=== PATIENT | female | born 1980 | race Two or more races ===

== ENCOUNTER 2024-11-19 06:13 | Observation (INO) | payer MEDICAID, SELFPAY ==
[2024-11-19] VITALS (13 sets, daily range): BP systolic 115–152; BP diastolic 62–102; PULSE 65–90; RESP 13–21; TEMP 36.4–37.1; O2SAT 94–99
--- NOTE | 2024-11-19 06:44 | XR_ITS ---
Examination: Abdomen sonogram, Limited Date and time of exam: November 19, 2024 0730 hrs. Indications: Bilateral abdominal pain beginning today. Technique: Real-time quiroz scale transabdominal sonographic images of the upper abdomen obtained. Findings: Gallbladder wall measures up to 0.43 cm with multiple areas of edema around the gallbladder wall 2 cm gallstone Common bile duct is enlarged 0.6 cm although no definite common bile duct stones. Pancreatic head 1.7 cm Liver 14.5 cm fatty infiltration Hypoechoic areas near the gallbladder which may again represent edema multiple images Normal hepatopedal portal venous flow Patent IVC Impression: Findings most consistent with acute calculus cholecystitis with enlarged common bile duct Consider MRCP follow-up to confirm cholecystitis and to exclude stricture or stones in the common bile duct
--- NOTE | 2024-11-19 06:45 | PD.EDABDPN ---
ED Abdominal Pain RME/HPI General Chief Complaint: Abdominal Pain Stated complaint: UPPER ABDOMINAL PAIN Time seen by provider: 11/19/24 06:32 Arrival date/time: 11/19/24 06:13 44-year-old female with no known medical history presents to the emergency room with a chief complaint of 8 out of 10 epigastric pain that radiates to the right upper quadrant x 1 day Source: patient Mode of arrival: ambulatory Limitations: no limitations Related Data Allergies Allergy/AdvReac Type Severity Reaction Status Date / Time No Known Allergies Allergy Verified 11/19/24 06:17 Review of Systems Review of Systems Systems Reviewed: All systems reviewed, normal except as documented Constitutional Constitutional: Reports system reviewed and no additional complaints, except as documented, Denies fatigue, Denies fever(s), Denies headache(s) and Denies weakness Eyes Eyes: Reports system reviewed and no additional complaints, except as documented, Denies blurry vision and Denies change in vision ENT Ears, Nose, Mouth, and Throat: Reports system reviewed and no additional complaints, except as documented, Denies otalgia, Denies headache(s), Denies nasal congestion, Denies throat swelling and Denies vertigo Cardiovascular Cardiovascular: Reports system reviewed and no additional complaints, except as documented, Denies chest pain, Denies dyspnea and Denies dyspnea on exertion Respiratory Respiratory: Reports system reviewed and no additional complaints, except as documented, Denies chest congestion, Denies cough, Denies dyspnea, Denies dyspnea on exertion and Denies wheezing Gastrointestinal Gastrointestinal: Reports system reviewed and no additional complaints, except as documented, Reports abdominal pain, Reports cramping, Reports nausea and Denies vomiting Genitourinary Genitourinary: Reports system reviewed and no additional complaints, except as documented Musculoskeletal Musculoskeletal: Reports system reviewed and no additional complaints, except as documented and Denies back pain Integumentary/Breasts Skin/Breast: Reports system reviewed and no additional complaints, except as documented and Denies wounds Neurologic Neurologic: Reports system reviewed and no additional complaints, except as documented, Denies confusion, Denies headache(s), Denies lack of coordination, Denies vertigo and Denies weakness Psychiatric Psychiatric: Reports system reviewed and no additional complaints, except as documented, Denies anxiety, Denies confusion, Denies depression, Denies paranoia, Denies suicidal ideation and Denies tactile hallucinations Endocrine Endocrine: Reports system reviewed and no additional complaints, except as documented and Denies fatigue Hematologic/Lymphatic Hematologic/Lymphatic: Reports system reviewed and no additional complaints, except as documented and Denies lymphadenopathy Allergic/Immunologic Allergic/Immunologic: Reports system reviewed and no additional complaints, except as documented, Denies throat swelling, Denies urticaria and Denies wheezing ED Exam General Limitations: Present no limitations General appearance: Present alert and in no apparent distress Head Head exam: Present atraumatic Eye Eye exam: Present normal appearance, PERRL and EOMI ENT ENT exam: Present normal exam, normal oropharynx and mucous membranes moist Neck Neck exam: Present normal inspection, full ROM and trachea midline Chest Chest inspection: Present normal inspection and symmetric chest wall rise Respiratory Respiratory exam: Present normal lung sounds bilaterally Cardiovascular Cardiovascular exam: Present regular rate, normal rhythm and normal heart sounds Abdominal Exam Abdominal exam: Present soft, tenderness, normal bowel sounds and Kelly's sign Abdominal tenderness: Present RUQ and moderate Extremities Exam Extremities exam: Present normal inspection and full ROM Back Exam Back exam: Present normal inspection and full ROM Neurological Exam Neurological exam: Present alert, oriented X3 and CN II-XII intact Psychiatric Psychiatric exam: Present normal affect and normal mood Skin Skin exam: Present warm, dry, intact and normal color Course Quality Measures none Orders Category Date Time Status Place in Surgical Day Care Routine Admission 11/19/24 08:35 Active Activity as Tolerated Routine Care 11/19/24 08:35 Ordered COVID-19 Screening Questionnaire NOW Care 11/19/24 08:32 Active Decision to Admit X1 Care 11/19/24 08:32 Completed Consult to General Surgery Stat Cons 11/19/24 08:32 Ordered US gall bladder Stat Exams 11/19/24 06:44 Completed CBC Stat Lab 11/19/24 06:51 Completed CMP [Comprehensive Metabolic Panel] Stat Lab 11/19/24 06:51 Completed HCG Qualitative,Urine Stat Lab 11/19/24 06:50 Completed Lipase Stat Lab 11/19/24 06:51 Completed UA [Urinalysis] Stat Lab 11/19/24 06:50 Completed Urine Culture Stat Lab 11/19/24 06:50 Received Acetaminophen Tab [Tylenol Tab] Med 11/19/24 08:35 Active 650 mg PO Q6H PRN HYDROcodone*/APAP 5/325 [[place] 5/325] Med 11/19/24 06:44 Discontinued 1 tab PO X1 ONE Ketorolac Inj [Toradol Inj] Med 11/19/24 08:35 Active 15 mg IVP Q6H PRN Morphine Inj Med 11/19/24 08:35 Active 4 mg IVP Q4H PRN Ondansetron Inj [Zofran Inj] Med 11/19/24 08:35 Active 8 mg IV Q4HR PRN Ondansetron Odt [Zofran Odt] Med 11/19/24 06:44 Discontinued 4 mg PO X1 ONE Piper/Tazo 3.375 gm Premix [Zosyn] Med 11/19/24 08:36 Active 3.375 gm in 50 ml IV X1 Sodium Chloride 0.9% 1000 ml [Ns] 1,000 ml Med 11/19/24 08:45 Active IV 125 mls/hr mg Hyd/Al Hyd/Jessica Susp [Maalox Susp] Med 11/19/24 06:44 Discontinued 30 ml PO X1 ONE Vital Signs Vital signs: Vital Signs Temperature 98 F 11/19/24 06:16 Pulse Rate 87 11/19/24 06:16 Respiratory Rate 18 11/19/24 06:16 Blood Pressure 129/85 H 11/19/24 06:16 Pulse Oximetry (%) 98 11/19/24 06:16 Oxygen Delivery Method Room Air 11/19/24 06:16 Abdominal Pain MDM MDM Narrative [facility] Narrative:: 44-year-old female with no known medical history presents to the emergency room with a chief complaint of 8 out of 10 epigastric pain that radiates to the right upper quadrant x 1 day Patient is hemodynamically stable and in no apparent distress. Patient is afebrile not tachycardic not tachypneic Physical examination shows 8 out of 10 pain with palpation to the epigastric area that radiates to the right upper quadrant. The patient has a positive Kelly sign. Ultrasound of the gallbladder was completed and shows the findings are most consistent with acute calculus cholecystitis with an enlarged common bile duct. Our general surgeon on-call Dr. Demarco was consulted and she will admit the patient Patient data External records reviewed:: [facility] previous records Clinical information provided by:: patient Social determinants that could affect healthcare access:: none Patient has the following chronic illnesses:: No chronic illness How is presenting disease/condition affected by chronic disease/condition?: no chronic disease Evaluation data The following diagnostics were reviewed and interpreted by me:: lab results and radiology exam(s) Lab and/or radiology exams considered but not ordered:: Labs and radiology exams considered and ordered Interpretation Summary: Gallbladder ultrasound-Findings: Gallbladder wall measures up to 0.43 cm with multiple areas of edema around the gallbladder wall 2 cm gallstone Common bile duct is enlarged 0.6 cm although no definite common bile duct stones. Pancreatic head 1.7 cm Liver 14.5 cm fatty infiltration Hypoechoic areas near the gallbladder which may again represent edema multiple images Normal hepatopedal portal venous flow Patent IVC Impression: Findings most consistent with acute calculus cholecystitis with enlarged common bile duct Consider MRCP follow-up to confirm cholecystitis and to exclude stricture or stones in the common bile duct Medications / Prescriptions Medications or Prescriptions considered but not ordered:: Medication given Medication administrations:: Medication Administration History Acetaminophen (Acetaminophen 325 Mg Tablet) 650 mg PO Q6H PRN PRN Reason: PAIN SCALE 1-3 (mild Stop: 12/19/24 08:34 Sodium Chloride (Ns) 1,000 mls @ 125 mls/hr IV .Q8H YULISSA Stop: 12/19/24 08:44 Ketorolac Tromethamine (Ketorolac Inj 30 Mg/Ml Vial) 15 mg IVP Q6H PRN PRN Reason: PAIN SCALE 4-6 (Moderate Stop: 11/24/24 08:34 Morphine Sulfate (Morphine Sulf Inj 10 Mg/Ml Vial) 4 mg IVP Q4H PRN PRN Reason: PAIN SCALE 7-10 (Severe Ondansetron HCl (Ondansetron Inj 2 Mg/Ml Inj 2 Ml) 8 mg IV Q4HR PRN; Protocol PRN Reason: NAUSEA OR VOMITING Stop: 12/19/24 08:34 Discontinued Medications Hydrocodone Bitart/Acetaminophen (Hydrocodone/Apap 5/325 Tablet) 1 tab PO X1 ONE Stop: 11/19/24 06:45 Last Admin: 11/19/24 07:18 Dose: 1 tab Documented By: KATIE Al Hydrox/Mg Hydrox/Simethicone (Mg Hyd/Al Hyd/Jessica (Maalox Reg) Susp 30 Ml Udc) 30 ml PO X1 ONE Stop: 11/19/24 06:45 Last Admin: 11/19/24 07:18 Dose: 30 ml Documented By: KATIE Piperacillin/Tazobactam/Dextrose (Zosyn) 3.375 gm in 50 mls @ 100 mls/hr IV X1 ONE Stop: 11/19/24 09:05 Ondansetron HCl (Ondansetron Odt 4 Mg Tabrap) 4 mg PO X1 ONE; Protocol Stop: 11/19/24 06:45 Last Admin: 11/19/24 07:17 Dose: 4 mg Documented By: KATIE Medication given Consultations Consultation(s) initiated? (list below): Yes Consultation #1 (Physician, Specialty, Details): Dr. Demarco general surgeon on-call Time: 08:30 Diagnosis Differential diagnosis abdominal pain: abdominal pain, constipation, gastroenteritis and other (Cholelithiasis/cholecystitis) Most likely diagnosis given after review of the tests above:: Acute calculus cholecystitis Admission Indicated Admission indicated?: indicated Admission Request Was there a request for admission?: Yes Admission Attestation Admission request attestation: Discussed case with [] from Hospitalist service regarding admission. Discussed patients ED course, exam findings, labs, and radiology results. The Hospitalist [agrees,declines] to accept the patient for admission. Disposition Plan Disposition Plan: Admit Discharge Plan Plan Patient Disposition: Admit Acute Care w/in Hospital Discharge Disposition comment: Stable Problem List Clinical Impression: Acute calculous cholecystitis
[2024-11-19 07:02] LABS: Collection Type, Urine Clean Catch
[2024-11-19 07:11] LABS: Basophils # (Auto) 0.1 Thou/mm3 (0.0-0.2); Basophils % (Auto) 1 % (0-2.5); Eosinophils # (Auto) 0.0 Thou/mm3 (0.0-0.5); Eosinophils % (Auto) 0 % (0-10); Hematocrit 39.7 % (36.0-46.0); Hemoglobin 14.0 g/dL (12.0-16.0); Immature Granulocytes Auto 0.04 Thou/mm3 (0.00-0.00); Lymphocytes # (Auto) 2.5 Thou/mm3 (1.0-4.8); Lymphocytes % (Auto) 24 % (10-50); Mean Corpuscular HGB Conc 35.3 g/dl (31.0-37.0); Mean Corpuscular Hemoglobin 31.0 pg (25.0-35.0); Mean Corpuscular Volume 88 fL (80-100); Monocytes # (Auto) 0.6 Thou/mm3 (0.0-0.8); Monocytes % (Auto) 6 % (0-12); Neutrophils # (Auto) 7.4 Thou/mm3 (1.8-7.7); Neutrophils % (Auto) 69 % (37-80); Nucleated Red Blood Cell # 0.00 Thou/mm3 (0.00-0.00); Nucleated Red Blood Cell % 0 /100 WBC (0); Platelet Count 328 Thou/mm3 (140-440); RDW Standard Deviation 40.3 fL (36.4-46.3); Red Blood Count 4.52 Miln/mm3 (4.00-5.20); White Blood Count 10.7 Thou/mm3 (3.6-11.0)
[2024-11-19] MEDS: ONDANSETRON ODT 4 MG TABRAP PO (07:17)
[2024-11-19] MEDS: MG HYD/AL HYD/SIME (Maalox Reg) SUSP 30 ML UDC PO (07:18)
[2024-11-19] MEDS: HYDROcodone/APAP 5/325 TABLET 1 TAB PO (07:18)
[2024-11-19 07:24] LABS: Alanine Aminotransferase 52 U/L (10-49); Albumin, Serum 4.2 gm/dL (3.5-5.0); Albumin/Globulin Ratio 1.4 (1.2-2.2); Alkaline Phosphatase 95 U/L (46-116); Anion Gap 10 (7-16); Aspartate Amino Transferase 33 U/L (0-34); BUN/Creatinine Ratio 17 Ratio (12-20); Bilirubin,Total 0.3 mg/dL (0.3-1.2); Blood Urea Nitrogen 10 mg/dL (9-23); Calcium 9.5 mg/dL (8.3-10.6); Calcium (Corrected) 9.5 mg/dL (8.5-10.1); Carbon Dioxide 22.0 mMol/L (20.0-31.0); Chloride 106 mMol/L (98-107); Creatinine (Component) 0.6 mg/dL (0.6-1.3); Globulin 2.9 gm/dL (2.3-3.5); Glucose 119 mg/dL (74-106); Lipase 30 U/L (12-53); Osmolality,Calculated 275 (275-295); Potassium 4.2 mMol/L (3.4-5.1); Sodium 138 mMol/L (136-145); Total Protein 7.1 gm/dL (5.7-8.2); eGFR > 60 See Note
[2024-11-19 07:34] LABS: Bilirubin,Urine Negative (Negative); Blood,Urine Negative (Negative); Clarity,Urine Clear (Clear/Hazy); Color,Urine Lt-Yellow (Lt Yel-Yel); Glucose, Urine Negative (Negative); Ketones,Urine Negative (Negative); Leukocyte Esterase,Urine Positive (Negative); Nitrite,Urine Negative (Negative); PH,Urine 6.5 (5.0-7.0); Protein,Urine Negative (Neg - Trace); RBC,Urine 2 /hpf (0-3); Specific Gravity,Urine 1.025 (1.001-1.035); Squamous Epithelial Cell,Urine 5 /hpf (0-5); Urobilinogen,Urine Negative mg/dL (0.0-1.0); WBC,Urine 2 /hpf (0-5)
[2024-11-19 07:36] LABS: HCG Qualitative,Urine Negative
[2024-11-19] MEDS: PIPER/TAZO 3.375 GM PREMIX 3.375 GM/50 ML BAG IV (10:06)
[2024-11-19] MEDS: SODIUM CHLORIDE 0.9% 1000 ML 1,000 ML 125 ML IV (10:07)
--- NOTE | 2024-11-19 11:35 | PD.SURHP ---
HPI Date of Admission 11/19/24 09:16 HPI Spoke to pt with phone sign language interpreter 44F presenting with abdominal pain and nausea. Patient reports pain began last night around 10:30 PM, with severity 9 out of 10 in the right upper quadrant associated with nausea. She states she had similar pain twice before but it was not as severe and did not last as long. In the ER workup was consistent with acute cholecystitis PMH: None PSH: Meds: Tylenol as needed Allergies: NKDA Social history: Non-smoker Review of Systems Review of Systems ROS Unobtainable: All systems reviewed & no additional complaints except as documented Constitutional Constitutional: Denies headache(s) and Denies weakness ENT Ears, Nose, Mouth, and Throat: Denies headache(s) and Denies vertigo Neurologic Neurologic: Reports system reviewed and no additional complaints, except as documented, Denies confusion, Denies headache(s), Denies lack of coordination, Denies vertigo and Denies weakness Psychiatric Psychiatric: Denies confusion Meds Home Medications and Allergies Allergies Allergy/AdvReac Type Severity Reaction Status Date / Time No Known Allergies Allergy Verified 11/19/24 06:17 Exam Vital Signs Temp Pulse Resp BP Pulse Ox O2 Del Method 98.0 F 65 18 127/83 98 Room Air 11/19/24 11:17 11/19/24 11:17 11/19/24 11:17 11/19/24 11:17 11/19/24 11:17 11/19/24 11:17 Constitutional Constitutional: no acute distress Routine Respiratory Exam Respiratory: Present no resp distress Routine Abdominal Exam Abdominal: Present soft and tenderness (Moderate right upper quadrant tenderness); Absent distended, rebound or guarding Results Results: Laboratory Laboratory results: results reviewed Results: Imaging US - abdomen: report reviewed and image reviewed Assessment & Plan Plan 44F presenting with signs and symptoms of acute cholecystitis. I explained alternatives to surgery including treatment with antibiotics with follow-up as outpatient, as well as benefits/risks of surgery including need for conversion to open, bleeding, infection, injury to nearby structures requiring further procedures which could require transfer to another hospital, as well as postoperative hernia and diarrhea. Patient requested time to consider and discussed with family, ultimately she decided she would like to have surgery today. All questions were answered and patient expressed understanding Quality Measures Quality Measures none
--- NOTE | 2024-11-19 13:08 | SUR.PHASEI ---
pt received to [facility] 2. vss. breathing even and unlabored with oral airway in place. dermabond in place to abdomen x4. no s/s pain or nausea. report from nurse mathews and madison lockett.
--- NOTE | 2024-11-19 13:08 | ESOP_ITS ---
Date of Procedure 11/19/24 Pre Op Diagnosis Acute cholecystitis Post Op Diagnosis Same Procedure Laparoscopic cholecystectomy Findings Inflamed gallbladder with large gallstone Procedure Description After discussion of risks and benefits, patient was brought to the operating room, SCDs were placed and general anesthesia was induced. She had already received preoperative antibiotics and was prepped and draped in the usual sterile fashion. After timeout a supraumbilical incision was made with a #15 blade and the skin was elevated with towel clamps. A Veress needle was placed through the incision and proper positioning was confirmed firmed with a drop test. The abdomen was insufflated to 15 mmHg at which point the Veress needle was exchanged for a 5 mm camera using a Visiport technique. There were no signs of injury from the point of entry. 3 additional ports were placed under direct vision, one 12 mm at the epigastrium, one 5 mm right subcostal and one 5 mm right anterior axillary line. Patient was placed in reverse Trendelenburg. The fundus of the gallbladder was grasped and noted to be somewhat tense so the gallbladder was first aspirated with return of 20 cc of bilious output. It was then more easily grasped and the fundus was retracted cephalad and the infundibulum was grasped and retracted laterally. Using blunt dissection the cystic duct and cystic artery were identified and the critical view of safety was achieved. The cystic duct and cystic artery were clipped and transected in the usual fashion and the gallbladder was removed from the gallbladder bed using electrocautery. During this dissection there was a small accessory artery that was encountered and it was clipped also in usual fashion. The specimen was removed in an Endo Catch bag via the epigastric port and the epigastric fascia was closed with a 0 Vicryl suture using a Berny-Philomena. The gallbladder bed was irrigated and hemostasis was achieved with electrocautery. Pneumoperitoneum was released and ports were removed under direct vision. Incisions were irrigated and infiltrated with half percent Marcaine for a total of 30 cc. Incisions were closed with 4 Monocryl and reinforced with Dermabond. Patient was extubated and brought to PACU in stable condition Pathology / specimen Other (Gallbladder) Estimated Blood Loss 25 Surgeon Nikki Soto MD Surgical Staff Operation Date: 11/19/24 11:15 Case Staff SWITCHMAN SUPERVISOR: Josemanuel Townsend RN First Assistant: Alyssa Lopez
--- NOTE | 2024-11-19 13:11 | PD.SURDS ---
Planned Discharge Date 11/19/24 DS: Providers Provider Date of admission: 11/19/24 09:16 Primary care physician: Physician No Primary/Family Admitting Provider: Nikki Soto MD Attending Provider on Admission: Nikki Soto MD Consults: 11/19/24 08:32 Consult to General Surgery Stat Comment: Consulting Provider: Nikki Soto Attending Provider on DC: Nikki Soto MD Discharging Provider: Nikki Soto MD Diagnosis Discharge Diagnosis (1) Acute calculous cholecystitis: Status: Acute Problem List Completed Was Problem List Reviewed/Reconciled?: Yes Exam Vital Signs Temp Pulse Resp BP Pulse Ox O2 Del Method 98.0 F 65 18 127/83 98 Room Air 11/19/24 11:17 11/19/24 11:17 11/19/24 11:17 11/19/24 11:17 11/19/24 11:17 11/19/24 11:17 Constitutional Constitutional: no acute distress Discharge Plan Plan Patient Disposition: HOME (Self Care) Prescriptions/Referrals Prescriptions/Med Rec: New oxycodone-acetaminophen [Percocet] 5-325 mg tablet 1 tab PO Q4HR MDD 6 tabs PRN (Reason: pain) Qty: 10 0RF Rx Instructions: Take 1 tablet every 4-6 hours as needed for moderate to severe pain Referrals: Nikki Soto MD [Physician] - (You will receive a phone call to confirm a follow-up appointment with me in 2 weeks) No Primary/Family,Physician [Primary Care Provider] - Patient/Caregiver Discharge Instructions Other Discharge Activity Instructions:: You may resume showering in 2 days, on 11/21 It is okay to get incisions wet in the shower, pat them dry after Avoid bathing or swimming for 2 weeks During the surgery we fill your abdomen with air in order to see the structures. Some of this air tends to linger and cause pain that is referred to the shoulder as well as pain with deep breaths. This will get better with time. Being out of bed and walking can help the air to absorb faster Avoid lifting objects greater than 10 pounds for 6 weeks Gradually resume your normal diet. For the first couple of weeks avoid fatty, greasy or spicy foods as these can cause pain and/or diarrhea You may take ibuprofen as needed between doses of Percocet or instead of Percocet for mild to moderate pain Percocet can cause constipation, please be sure to drink plenty of water and take Colace or MiraLAX as needed If you develop worsening pain, nausea/vomiting, fever or signs of jaundice please seek care in ER Education Materials: Cholecystectomy Laparoscopic Dc, Preventing Surgical Site Infections Print Language: Brazilian Stand Alone Forms: Priscilla Award Info., Patient Portal Info Letter, Work/Release Restrictions Discharge Order Discharge Orders: Discharge (Routine); Ordered 11/19/24 Ordered By: Nikki Soto Results Results: Laboratory Laboratory results: results reviewed Results: Imaging US - abdomen: report reviewed PROCEDURES: Procedures Laparoscopic cholecystectomy
--- NOTE | 2024-11-19 13:28 | SUR.PHASEI ---
oral airway removed.
[2024-11-19] MEDS: MORPHINE SULF INJ 10 MG/ML VIAL 4 MG IVP (13:47)
--- NOTE | 2024-11-19 14:14 | SUR.PHASEII ---
pt discharged with all belongings. vss. breathing even and unlabored. denies pain and nausea. tolerating po fluids. dressings remain cdi. discharge instructions gone over with pt, mother and cousin. all verbalized understanding. signed by mother. substance abuse clinician octavia [id number] services used.
== END 2024-11-19 14:14 | disposition home or self-care (01) ==
LOC: SERX 08:00 → S2EX 08:43 → SERHOLD 09:24
PROVIDERS: Nurse Practitioner Family; Admitting Provider Surgery; Emergency Provider Emergency Medicine; Visit Provider Surgery
PROC: 0FT44ZZ Resection of Gallbladder, Percutaneous Endoscopic Approach (ICD-10-PCS; CPT 47562; principal; 2024-11-19 11:00)
DX: K80.12 Calculus of gallbladder with acute and chronic cholecystitis without obstruction (principal)
CPT/HCPCS: 47562; 36415; 76705; 80053; 81001; 81025; 83690; 85025; 87086; 96374; 99284; A4217; A4649; G0378; J0131; J1100; J2270; J2405; J2543; J2704; J3010; J3490; J7030; Q0162; A9270

== ENCOUNTER 2024-12-03 13:56 | Outpatient (AMB) | payer MEDICAID, SELFPAY ==
[2024-12-03 14:08] VITALS: BP 113/76; PULSE 84; RESP 16; TEMP 36.5; O2SAT 98; BMI 29.3
--- NOTE | 2024-12-03 14:08 | PD.GSCLVISIT ---
Vital Signs - [facility] 12/03/24 14:08 Height 1.52 m Height Method Measured Weight 68.181 kg Weight Measurement Method Standing Scale BMI 29.3 BP 113/76 Blood Pressure Source Automatic Cuff Blood Pressure Location Left Upper Arm Position Sitting Respiration 16 Pulse 84 Pulse Source Monitor Temp 97.7 F Temp Source Temporal Artery Scan Pulse Oximetry (%) 98 Oxygen Delivery Method Room Air Med/Allergies Allergies & Medications Allergies No Known Allergies Allergy (Verified 12/03/24 14:10) Medication Reconciliation oxycodone-acetaminophen 5 mg-325 mg tablet (Percocet) 1 tab PO Q4HR PRN pain #10 tabs 11/19/24 [Rx Confirmed 12/03/24] MA Intake Visit Data Collection New Patient or Established: Established Patient (seen at [facility] within 3 years) Seen by Clinical Staff ONLY (RN/MA): No Reason for Visit:: 2 WEEK POST OP Pain Present Currently: No Pain Scale Used: Scott-Hyde/Numerical Mine Expert Required: Yes PCP or OBGYN visit in last 3 months: Yes Hx Now: No Do You Feel Safe at Home: Yes Authorities Contacted: N/A Smoking Status Smoking Status: Never smoker Immunization / Flu Flu Vaccine in the Last 12 Months: No Flu Vaccine Exclusion Criteria: Refused by Patient Past Medical History Past Medical History NEUROLOGIC: Negative Seizures CARDIAC: Negative Congestive Heart Failure RESPIRATORY: Negative Chronic Obstructive Pulmonary Disease (COPD) GENITOURINARY: Negative Renal Disease ENDOCRINE: Negative Diabetes Mellitus Type 1 or Diabetes Mellitus Type 2 OTHER HISTORY: Negative Blood Transfusions or Anesthesia Reactions Social History SMOKING STATUS: Smoking status: Never smoker HPI HPI Narrative Spoke to pt with in-person manager of network 44F who presented with acute cholecystitis s/p lap baljinder 11/19 here for planned follow up. Pt reports feeling very well, she is not currently having any pain, is eating her usual diet and having regular BMs without any diarrhea or constipation. She denies any fever or jaundice ROS Review of Systems Systems Reviewed: All systems reviewed, normal except as documented Objective/Exam General General Appearance: alert, cooperative and well groomed Resp Respiratory exam: Absent respiratory distress Abdominal Abdominal exam: Present soft and incision (c/d/i, no erythema, no fluctuance or tenderness); Absent distention or tenderness Results Pathology of gallbladder reviewed Assessment & Plan Diagnosis / Problem List (1) Acute calculous cholecystitis: Status: Acute Assessment & Plan: 44F who presented with acute cholecystitis s/p lap baljinder 11/19 here for planned follow up, recovering well overall Plan: Avoid strenuous activity for 6 weeks postop F/u as needed Office Procedures GNS Level of Care Nursing/Assessment Patient Status: Established Patient Nursing Assessment/Reassesment: Medication Reconciliation, Update PMH in EMR and Vital Signs Coordination of Care: Complex Care and Chronic Disease 1-5, Consent,records obtained, informed consent, Education Simp Pt/Fam, Results/Orders obtained and Staff clarify orders Established Patient Charge Established Patient Point Assignment: 90 Established Patient Point Charge: EP Level 3 (80-115) Patient Portal Questionaires Social History Tobacco History Smoking Status: Never smoker Domestic Abuse History Do You Feel Safe at Home: Yes Review of Systems Report any current symptoms Only answer those that you have currently: Past Medical History Past Medical History Have you ever been diagnosed with any of the following: Neurological Problems Seizures: No Cardiology Problems Congestive Heart Failure: No Respiratory Problems Chronic Obstructive Pulmonary Disease (COPD): No Genital/Urinary Problems Renal Disease: No Endocrine Problems Diabetes Mellitus Type 1: No Diabetes Mellitus Type 2: No Other Problems Blood Transfusions: No Anesthesia Reactions: No
== END 2024-12-03 14:37 | disposition home or self-care (01) ==
LOC: HODSRG 13:56
PROVIDERS: Supervising Provider Surgery; Visit Provider Surgery
DX: Z48.815 Encounter for surgical aftercare following surgery on the digestive system (principal)
CPT/HCPCS: 99213; G0463

== ENCOUNTER 2024-12-05 08:22 | Emergency (ER) | payer MEDICAID, SELFPAY ==
[2024-12-05 08:29] VITALS: BP 125/65; PULSE 69; RESP 16; TEMP 36.9; O2SAT 98; BMI 28.5
--- NOTE | 2024-12-05 08:38 | EDNOTE_ITS ---
<Statement entered by Deidra Powers MD - 12/24/24 06:10> As co-signing physician, I was present and available for consult prn. I concur with the plan and care as documented by the midlevel provider. ED Skin Abcess FB-RME/HPI General Chief complaint: Skin/Abscess/Foreign Body Stated complaint: SURGICAL SITE CHECK Time Seen by Provider: 12/05/24 08:36 Arrival date/time: 12/05/24 08:22 44-year-old female presents to the emergency department today stating that she recently had cholecystectomy reports localized infection at surgical site Limitations: no limitations Related Data Previous Rx's ?Medication ?Instructions ?Recorded oxycodone-acetaminophen 5 mg-325 1 tab PO Q4HR PRN kamala n #10 tabs 11/19/24 mg tablet (Percocet) clindamycin HCl 300 mg capsule 300 mg PO TID 7 days #2 1 caps 12/05/24 Allergies Allergy/AdvReac Type Severity Reaction Status Date / Time No Known Allergies Allergy Verified 12/03/24 14:10 Review of Systems Review of Systems Systems Reviewed: All systems reviewed, normal except as documented Constitutional Constitutional: Reports system reviewed and no additional complaints, except as documented, Denies fever(s) and Denies headache(s) Eyes Eyes: Reports system reviewed and no additional complaints, except as documented and Denies blurry vision ENT Ears, Nose, Mouth, and Throat: Reports system reviewed and no additional complaints, except as documented, Denies headache(s), Denies nasal congestion and Denies nasal discharge Cardiovascular Cardiovascular: Reports system reviewed and no additional complaints, except as documented, Denies chest pain and Denies dyspnea Respiratory Respiratory: Reports system reviewed and no additional complaints, except as documented, Denies chest congestion, Denies cough and Denies dyspnea Gastrointestinal Gastrointestinal: Reports system reviewed and no additional complaints, except as documented and Denies abdominal pain Integumentary/Breasts Skin/Breast: Reports system reviewed and no additional complaints, except as documented, Denies rash and Reports other (Infection surgical site) Neurologic Neurologic: Reports system reviewed and no additional complaints, except as documented, Reports as per HPI and Denies headache(s) Past Medical History Past Medical History NEUROLOGIC: Negative Seizures CARDIAC: Negative Congestive Heart Failure RESPIRATORY: Negative Chronic Obstructive Pulmonary Disease (COPD) GENITOURINARY: Negative Renal Disease ENDOCRINE: Negative Diabetes Mellitus Type 1 or Diabetes Mellitus Type 2 OTHER HISTORY: Negative Blood Transfusions or Anesthesia Reactions Social History SMOKING STATUS: Never smoker ED Exam General Limitations: Present no limitations General appearance: Present alert and in no apparent distress Head Head exam: Present atraumatic, normocephalic and normal inspection Eye Eye exam: Present normal appearance, PERRL and EOMI; Absent conjunctival injection ENT ENT exam: Present normal exam, normal oropharynx and mucous membranes moist Neck Neck exam: Present normal inspection, full ROM and trachea midline Chest Chest inspection: Present normal inspection and symmetric chest wall rise Respiratory Respiratory exam: Present normal lung sounds bilaterally Cardiovascular Cardiovascular exam: Present regular rate, normal rhythm and normal heart sounds Abdominal Exam Abdominal exam: Present soft and normal bowel sounds; Absent distention, tenderness, guarding, rebound, rigidity, Kelly's sign or tenderness at McBurney's Point Abdominal tenderness: Absent RUQ or RLQ Extremities Exam Extremities exam: Present normal inspection and full ROM Back Exam Back exam: Present normal inspection and full ROM Neurological Exam Neurological exam: Present alert, oriented X3 and CN II-XII intact Psychiatric Psychiatric exam: Present normal affect and normal mood Skin Skin exam: Present warm and dry Course Quality Measures none Vital Signs Vital signs: Vital Signs Temperature 98.4 F 12/05/24 08:29 Pulse Rate 69 12/05/24 08:29 Respiratory Rate 16 12/05/24 08:29 Blood Pressure 125/65 12/05/24 08:29 Pulse Oximetry (%) 98 12/05/24 08:29 Oxygen Delivery Method Room Air 12/05/24 08:29 O2 saturation 98% on room air within normal Skin / Abscess / Foreign Body MDM Narrative MDM Narrative:: 44-year-old female presents to the emergency department today stating that she recently had cholecystectomy reports localized infection at surgical site On exam patient appears to have very superficial localized infection to one of her incision sites Patient ports no fever nausea or vomiting On exam patient has no palpable masses or abscesses Patient be treated course of antibiotics Consultation: I spoke with patient's surgeon in agreement with the plan Patient discharged home in no distress to follow-up with primary care doctor in the next 24 to 48 hours and for any worsening symptoms to return to the ER immediately Patient data External records reviewed:: [facility] previous records Clinical information provided by:: patient Social determinants that could affect healthcare access:: none Patient has the following chronic illnesses:: History How is presenting disease/condition affected by chronic disease/condition?: caused by Evaluation data The following diagnostics were reviewed and interpreted by me:: other (specify) Lab and/or radiology exams considered but not ordered:: Considered not indicated Interpretation Summary: N/A Medications / Prescriptions Medications or Prescriptions considered but not ordered:: Given Medication administrations:: Given Consultations Consultation(s) initiated? (list below): Yes Consultation #1 (Physician, Specialty, Details): Dr. Soto Diagnosis Skin/Abscess Differential Diagnosis: abscess of skin or subcutaneous tissue and cellulitis Most likely diagnosis given after review of the tests above:: Postop infection Admission Indicated Admission indicated?: not indicated Admission Request Was there a request for admission?: No Disposition Plan Disposition Plan: Discharge Discharge Attestation Discharge Attestation: The patient and all family members were given an opportunity to ask questions and understood the discharge instructions. Discharge instructions specifically effects, indications for sooner follow up or return to the emergency department, and the expected course of current diagnosis. Patient condition: Stable Discharge Plan Plan Patient Disposition: HOME (Self Care) Discharge Disposition comment: Stable Prescriptions/Referrals Prescriptions/Med Rec: New clindamycin HCl 300 mg capsule 300 mg PO TID 7 Days Qty: 21 0RF No Action oxycodone-acetaminophen [Percocet] 5-325 mg tablet 1 tab PO Q4HR MDD 6 tabs PRN (Reason: pain) Qty: 10 0RF Rx Instructions: Take 1 tablet every 4-6 hours as needed for moderate to severe pain Problem List Clinical Impression: Postoperative infection Patient/Caregiver Discharge Instructions Education Materials: ED Post Op Wound Check, Infection Additional Instructions: Please follow-up with your general surgeon as discussed for worsening symptoms return immediately Print Language: American Stand Alone Forms: Priscilla Award Info., Patient Portal Info Letter PA/BOX TRUCK WASHER Supervising Physician PA/BOX TRUCK WASHER Supervising Physician: dr powers
== END 2024-12-05 08:45 | disposition home or self-care (01) ==
LOC: SERX 08:48
PROVIDERS: Emergency Provider Nurse Practitioner Primary Care; PCP Nurse Practitioner Women's Health
DX: T81.40XA Infection following a procedure, unspecified, initial encounter (principal)
CPT/HCPCS: 99281